=== PATIENT | female | born 1990 | race Caucasian/White ===

== ENCOUNTER 2020-12-23 12:42 | Emergency (ER) | payer BC ==
[~2020-12-23] VITALS: Ht 160 cm; Wt 97.5 kg
[2020-12-23 12:42] VITALS: BP 127/76
--- NOTE | 2020-12-23 13:01 | NUR ---
SEEN AND EXAMINED BY .
[2020-12-23] MEDS ORDERED: LIDOCAINE 1%-EPI 1:100,000 20 ML VIAL ONE (13:17)
--- NOTE | 2020-12-23 13:57 | NUR ---
Patient discharged to home in stable condition. Written and verbal after care instructions given. Patient verbalizes understanding of instruction.
== END 2020-12-23 13:57 | disposition home or self-care (01) ==
LOC: ER 12:50
DX: N75.1 Abscess of Bartholin's gland (principal)
CPT/HCPCS: 56420; 99284; A6403; A6407; J3490

== ENCOUNTER 2023-03-28 15:42 | Emergency (ER) | payer SELFPAY ==
[~2023-03-28] VITALS: Ht 157.5 cm; Wt 97.5 kg
[2023-03-28 16:39] VITALS: TEMP 98.7
[2023-03-28] MEDS ORDERED: LIDOCAINE HCL/MPF 1% 30 ML VIAL IJ ONE (17:17)
[2023-03-28] MEDS: LIDOCAINE HCL/PF 1% 30 ML VIAL TP ONE (17:38)
[2023-03-28] MEDS ORDERED: AMOX-430 PO (17:51)
[2023-03-28] MEDS ORDERED: SULF1TAB48 PO (17:51)
[2023-03-28] MEDS ORDERED: IBUPROFEN 600 MG TABLET ONE (17:56)
[2023-03-28] MEDS ORDERED: SULFAMETH/TRIMETH 800/160 MG 1 UDTAB TABLET ONE (17:57)
[2023-03-28] MEDS ORDERED: AMOX/CLAVULANATE 875 MG TABLET ONE (17:57)
[2023-03-28] MEDS: SULFAMETH/TRIMETH 800/160 MG 1 UDTAB TABLET PO ONE (17:59)
[2023-03-28] MEDS: IBUPROFEN 600 MG TABLET PO ONE (17:59)
[2023-03-28] MEDS: AMOX/CLAVULANATE 875 MG TABLET PO ONE (17:59)
[2023-03-28 18:05] VITALS: BP 125/79; O2SAT 100
== END 2023-03-28 17:59 | disposition home or self-care (01) ==
LOC: ER 15:42
DX: N75.1 Abscess of Bartholin's gland (principal)
CPT/HCPCS: 56420; 99284; J3490

== ENCOUNTER 2024-10-21 07:34 | Emergency (ER) | payer SELFPAY ==
[~2024-10-21] VITALS: Ht 157.5 cm; Wt 99.8 kg
[~2024-10-21 07:34] MED LIST: AMOX-430 PO; SULF1TAB48 PO
[2024-10-21 07:39] VITALS: BP 154/101; TEMP 97.9
[2024-10-21] MEDS ORDERED: CLOT15CR35 TP (07:51)
[2024-10-21] MEDS ORDERED: HYDR28.32 TP (07:51)
[2024-10-21 07:59] VITALS: O2SAT 99
== END 2024-10-21 07:59 | disposition home or self-care (01) ==
LOC: ER 07:39
DX: B35.4 Tinea corporis (principal); Z60.2 Problems related to living alone